=== PATIENT | female | born 1970 | race Caucasian/White ===

== ENCOUNTER 2017-02-12 19:12 | Emergency (ER) | payer BC ==
[~2017-02-12] VITALS: Ht 165.1 cm; Wt 70.2 kg
[~2017-02-12 19:12] MED LIST: ALPR0.5T6 PO; ALPR2TAB PO; BUSP30TA PO; GABA100C14 PO
[2017-02-12 20:48] VITALS: Ht 165.1 cm; Wt 70.2 kg
[2017-02-12] MEDS ORDERED: ACETAMINOPHEN 500 MG TAB PO STA (21:25)
[2017-02-12 22:02] LABS: URINE BLOOD (Dip) POC 1+ (NEGATIVE)
[2017-02-12 22:50] LABS: ADD UMIC YES; UR ASCORBIC ACID NEGATIVE (NEGATIVE); UR BILIRUBIN (Dip) NEGATIVE (NEGATIVE); UR BLOOD (Dip) 1+ mg/dL (NEGATIVE); UR CLARITY CLEAR (CLEAR); UR COLOR YELLOW (YELLOW); UR GLUCOSE (Dip) NEGATIVE (NEGATIVE); UR KETONES (Dip) NEGATIVE (NEGATIVE); UR LEUKOCYTE ESTERASE (Dip) NEGATIVE Leu/ul (NEGATIVE); UR MUCUS MODERATE /HPF (NONE SEEN); UR NITRITE (Dip) NEGATIVE (NEGATIVE); UR RBC 2 /HPF (0-5); UR SPECIFIC GRAVITY (Dip) 1.024 (1.003-1.030); UR SQUAMOUS EPITHELIAL CELL FEW /HPF (FEW); UR TOTAL PROTEIN (Dip) NEGATIVE (NEGATIVE); UR UROBILINOGEN (Dip) NEGATIVE (NEGATIVE)
--- NOTE | 2017-02-12 22:53 | RADRPT ---
PROCEDURE: CT ABDOMEN/PELVIS WITHOUT CONTRAST CLINICAL INDICATION: 46-year-old female with lower quadrant pain. TECHNIQUE: The study was performed utilizing a GE [employer] VCT 64-slice CT scanner. Direct axia l sections were obtained through the abdomen and pelvis without the use of intravenous contrast mate rial. Sagittal and coronal reformations were obtained. One or more of the following dose reduction t echniques were utilized: automated exposure control, adjustment of the mA and/or kV according to pat ient's size or use of iterative reconstruction technique. The images were reviewed on a PACS workst [employer]. CTD/vol = 21.0 mGy; Total Exam DLP = 1107.3 mGy-cm. COMPARISON: None. FINDINGS: The lung bases are unremarkable. There is no evidence for significant pleural effusion. There are m inimal bilateral foramen of Bochdalek hernias containing fat. The liver has a normal size and contou r without focal areas of abnormal density. No intrahepatic nor extrahepatic biliary ductal dilatatio n is seen. The gallbladder demonstrates no wall thickening nor pericholecystic fluid. No biliary sto jared are evident. The pancreas is without areas of abnormal attenuation. The spleen is identified an d has a normal size without abnormal density. The adrenal glands are unremarkable. The kidneys are w ithout abnormal density. No hydroureteronephrosis nor nephroureterolithiasis is evident. The urinary bladder is decompressed. There is no evidence for bowel obstruction. There are multiple diverticula identified within the sigmoid colon with thickening and surrounding inflammatory changes consistent with acute sigmoid diverticulitis. The appendix is visualized and is without abnormal thickening or surrounding inflammatory reaction. The uterus is bulbous and anteflexed. Multiple phleboliths ar e seen within the pelvis. There is no significant free fluid. There is a small left inguinal hernia containing fat. The aortoiliac vessels are without aneurysmal dilatation. The osseous structures ar e intact. IMPRESSION: 1. Acute sigmoid diverticulitis. 2. No CT evidence for appendicitis. 3. Small left inguinal hernia containing fat. .Osman Henderson MD, Date Time Electronically viewed and signed by .Osman Henderson MD, MD on 02/12/2017 22:53 .Vinicius
[2017-02-12 23:19] LABS: BASOPHIL # 0.1 10^3/ul (0.0-0.1); BASOPHILS % 0.7 % (0.0-2.0); EOSINOPHILS # 0.3 10^3/ul (0.0-0.5); EOSINOPHILS % 2.5 % (0.0-7.0); HEMOGLOBIN 13.2 g/dl (12.0-16.0); LYMPHOCYTES # 2.6 10^3/ul (0.8-2.9); LYMPHOCYTES % 23.4 % (15.0-51.0); MEAN CORPUSCULAR HEMOGLOBIN 29.9 pg (29.0-33.0); MEAN CORPUSCULAR HGB CONC 32.2 g/dl (32.0-37.0); MEAN PLATELET VOLUME 9.9 fl (7.4-10.4); MONOCYTE # 0.6 10^3/ul (0.3-0.9); MONOCYTES % 5.2 % (0.0-11.0); NEUTROPHILS % 67.7 % (39.0-77.0); PLATELET COUNT 241 10^3/UL (140-415); RED BLOOD COUNT 4.41 10^6/ul (4.20-5.40); RED CELL DISTRIBUTION WIDTH 13.7 % (11.5-14.5); WHITE BLOOD COUNT 11.1 10^3/ul (4.8-10.8)
[2017-02-13 00:11] LABS: ALBUMIN 3.9 g/dl (3.3-4.9); ALBUMIN/GLOBULIN RATIO 1.08; BILIRUBIN,INDIRECT 0.2 mg/dl (0-1.1); BILIRUBIN,TOTAL 0.2 mg/dl (0.2-1.3); CALCIUM 9.2 mg/dl (8.4-10.2); CREATININE 0.91 mg/dl (0.44-1.00); POTASSIUM 3.9 mmol/L (3.5-5.1); TOTAL PROTEIN 7.5 g/dl (6.1-8.1)
[2017-02-13] MEDS ORDERED: ACET500C5 PO (00:21)
[2017-02-13] MEDS ORDERED: METR500T PO (00:21)
[2017-02-13] MEDS ORDERED: CIPR500T4 PO (00:21)
[2017-02-13] MEDS ORDERED: CIPROFLOXACIN 500 MG TAB PO ONE (00:30)
[2017-02-13] MEDS ORDERED: metroNIDAZOLE 500 MG TAB PO ONE (00:30)
--- NOTE | 2017-02-13 01:04 | ERD ---
ER Documentation Chief Complaint Date/Time DATE: 02/13/17 TIME: 00:50 Chief Complaint lower to right abdominal pain radiating to left since yesterday HPI 46-year-old female complaining of sudden onset abdominal pain since 7 PM last night. Patient initially was located below the [facility], the pain has migrated to the right lower quadrant and left lower quadrant over time. Patient reports pain is constant and sharp. Denies fever or chills. Denies vomiting or diarrhea. Denies dysuria. LMP 02/03/2017. ROS All systems reviewed and are negative except as per history of present illness. Medications Home Meds Active Scripts Acetaminophen* (Tylophen*) 500 Mg Capsule, 1 CAP PO Q6H Y for PAIN AND OR ELEVATED TEMP, #20 CAP Prov:MARI MORALES NP 02/13/17 Metronidazole* (Flagyl*) 500 Mg Tablet, 500 MG PO TID for 7 Days, TAB Prov:MARI MORALES. AZRA 02/13/17 Ciprofloxacin Hcl* (Ciprofloxacin Hcl*) 500 Mg Tablet, 500 MG PO BID for 7 Days , TAB Prov:MARI MORALES [employer] 02/13/17 Reported Medications Alprazolam* (Alprazolam*) 0.5 Mg Tablet, 0.5 MG PO TID 07/23/12 Alprazolam (Alprazolam XR) 2 Mg Tab.sr.24h, 2 MG PO DAILY 07/23/12 Gabapentin* (Gabapentin*) 100 Mg Capsule, 200 MG PO BID 07/23/12 Buspirone Hcl (Buspar) 30 Mg Tablet, 30 MG PO BID 07/23/12 Allergies Allergies: Coded Allergies: butorphanol tartrate (Verified Allergy, Unknown, HALLUCINATION, 02/13/17) meloxicam (Verified Allergy, Unknown, RASH, 02/13/17) PMhx/Soc History of Surgery: Yes (,Hysterectomy,Mammoplasty) Anesthesia Reaction: No Hx Neurological Disorder: No Hx Respiratory Disorders: No Hx Cardiac Disorders: No Hx Psychiatric Problems: Yes (Anxiety) Hx Miscellaneous Medical Probl: Yes (URIs) Hx Alcohol Use: Yes (weekly) Hx Substance Use: No Hx Tobacco Use: Yes (1-2 sticks/day) Smoking Status: Current every day smoker Physical Exam Vitals Vital Signs Date Time Temp Pulse Resp B/P Pulse Ox O2 Delivery O2 Flow Rate FiO2 02/12/17 20:48 98.3 82 20 143/95 98 Physical Exam General: Well-developed, well-nourished, conscious and coherent, in no distress Skin: Warm and dry without rash, good texture and turgor Head: Normocephalic without evidence of trauma Eyes: Sclera and conjunctivae normal; pupils equal, round, and reactive to light; extraocular movements are intact Chest: Normal AP diameter. Good expansion without retractions. Nontender. Lungs are clear to auscultate bilaterally with good tidal volume Heart: Regular rate and rhythm. No murmur, rub, or gallops heard Abdomen: Soft, tenderness over the left lower and right lower quadrants. Rebound tenderness at the right lower quadrant. No masses. Bowel sounds are active. No hepatosplenomegaly Back: Without spinal or CVA tenderness Extremities: Full range of motion. Good strength bilaterally. No clubbing, cyanosis, or edema. Peripheral pulses are intact. Sensation intact Neuro: Alert and oriented 4, GCS 15. Cranial nerves grossly intact. Motor and sensory exams nonfocal. Moves all extremities. Speech clear. Gait normal Result Diagram: 02/12/17224802/12/172248 Results 24 hrs Laboratory Tests Test 02/12/17 22:07 02/12/17 22:08 02/12/17 22:49 Urine Color YELLOW Urine Clarity CLEAR Urine pH 5.0 Urine Specific [place] 1.024 Urine Ketones NEGATIVEmg/dL Urine Nitrite NEGATIVEmg/dL Urine Bilirubin NEGATIVEmg/dL Urine Urobilinogen NEGATIVEmg/dL Urine Leukocyte Esterase NEGATIVELeu/ul Urine Microscopic RBC 2/HPF Urine Microscopic WBC 1/HPF Urine Squamous Epithelial Cells FEW/HPF Urine Mucus MODERATE/HPF Urine Hemoglobin 1+mg/dL Urine Glucose NEGATIVEmg/dL Urine Total Protein NEGATIVEmg/dl Bedside Urine pH (LAB) 6.0 Bedside Urine Protein (LAB) 1+ Bedside Urine Glucose (UA) Negative Bedside Urine Ketones (LAB) Negative Bedside Urine Blood 1+ Bedside Urine Nitrite (LAB) Negative Bedside Urine Leukocyte Esterase (L Negative White Blood Count 11.110^3/ul Red Blood Count 4.4110^6/ul Hemoglobin 13.2g/dl Hematocrit 41.0% Mean Corpuscular Volume 93.0fl Mean Corpuscular Hemoglobin 29.9pg Mean Corpuscular Hemoglobin Concent 32.2g/dl Red Cell Distribution Width 13.7% Platelet Count 61996^3/UL Mean Platelet Volume 9.9fl Neutrophils % 67.7% Lymphocytes % 23.4% Monocytes % 5.2% Eosinophils % 2.5% Basophils % 0.7% Nucleated Red Blood Cells % 0.0/100WBC Neutrophils # (Manual) 7.510^3/ul Lymphocytes # 2.610^3/ul Monocytes # 0.610^3/ul Eosinophils # 0.310^3/ul Basophils # 0.110^3/ul Nucleated Red Blood Cells # 0.010^3/ul Sodium Level 141mmol/L Potassium Level 3.9mmol/L Chloride Level 102mmol/L Carbon Dioxide Level 26mmol/L Anion Gap 17 Blood Urea Nitrogen 15mg/dl Creatinine 0.91mg/dl Glucose Level 94mg/dl Calcium Level 9.2mg/dl Total Bilirubin 0.2mg/dl Direct Bilirubin 0.00mg/dl Indirect Bilirubin 0.2mg/dl Aspartate Amino Transf (AST/SGOT) 30IU/L Alanine Aminotransferase (ALT/SGPT) 31IU/L Alkaline Phosphatase 59IU/L Total Protein 7.5g/dl Albumin 3.9g/dl Globulin 3.60g/dl Albumin/Globulin Ratio 1.08 Lipase 131U/L Current Medications Medications (Trade) Dose Ordered Sig/Matthew Route PRN Reason Start Time Stop Time Status Last Admin Dose Admin Acetaminophen (Tylenol Tab) 1,000 mg ONCE STAT PO 02/12/17 21:25 02/12/17 21:27 DC 02/12/17 22:32 Metronidazole (Flagyl) 500 mg ONCE ONCE PO 02/13/17 00:30 02/13/17 00:31 DC 02/13/17 00:48 Ciprofloxacin (Cipro) 500 mg ONCE ONCE PO 02/13/17 00:30 02/13/17 00:31 DC 02/13/17 00:48 PROCEDURE: CT ABDOMEN/PELVIS WITHOUT CONTRAST CLINICAL INDICATION: 46-year-old female with lower quadrant pain. TECHNIQUE: The study was performed utilizing a [employer] VCT 64-slice CT scanner. Direct axial sections were obtained through the abdomen and pelvis without the use of intravenous contrast material. Sagittal and coronal reformations were obtained. One or more of the following dose reduction techniques were utilized: automated exposure control, adjustment of the mA and/ or kV according to patient's size or use of iterative reconstruction technique. The images were reviewed on a PACS workstation. CTD/vol = 21.0 mGy; Total Exam DLP = 1107.3 mGy-cm. COMPARISON: None. FINDINGS: The lung bases are unremarkable. There is no evidence for significant pleural effusion. There are minimal bilateral foramen of Bochdalek hernias containing fat. The liver has a normal size and contour without focal areas of abnormal density. No intrahepatic nor extrahepatic biliary ductal dilatation is seen. The gallbladder demonstrates no wall thickening nor pericholecystic fluid. No biliary stones are evident. The pancreas is without areas of abnormal attenuation. The spleen is identified and has a normal size without abnormal density. The adrenal glands are unremarkable. The kidneys are without abnormal density. No hydroureteronephrosis nor nephroureterolithiasis is evident. The urinary bladder is decompressed. There is no evidence for bowel obstruction. There are multiple diverticula identified within the sigmoid colon with thickening and surrounding inflammatory changes consistent with acute sigmoid diverticulitis. The appendix is visualized and is without abnormal thickening or surrounding inflammatory reaction. The uterus is bulbous and anteflexed. Multiple phleboliths are seen within the pelvis. There is no significant free fluid. There is a small left inguinal hernia containing fat. The aortoiliac vessels are without aneurysmal dilatation. The osseous structures are intact. IMPRESSION: 1. Acute sigmoid diverticulitis. 2. No CT evidence for appendicitis. 3. Small left inguinal hernia containing fat. .Osman Henderson MD, Date Time Electronically viewed and signed by .Osman Henderson MD, MD on 02/12/2017 22:53 .M/ CC: MARI MORALES. [employer] Procedures/MDM Well-appearing 46-year-old female presented ED with lower abdominal pain 2 days. Mild leukocytosis of 11.1 is noted on CBC, otherwise negative. CMP and lipase are negative. UA has 1+ hemoglobin, otherwise negative. CT of abdomen pelvis without IV contrast showed acute diverticulitis, no appendicitis, and small inguinal hernia containing fat. Her urine test is negative, low suspicion for ectopic , ovarian torsion, or ruptured ovarian cyst. Patient was given Tylenol in the ED for pain. Patient reports no relief of pain. However patient refused morphine or any other pain medications due to fear of the side effects or adverse reactions. First dose of Flagyl and Cipro was given to the patient in the ED. Patient will be discharged home for outpatient management, but advised to return to ED in 8-10 hours for recheck. Patient appears well, stable for discharge and outpatient management. Medical decision making shared with patient and family. Education provided to patient and family. Patient and family expressed understanding of the plan. Medications on discharge: Cipro, Flagyl, Tylenol. Follow-up: Return to ED in 8-10 hours for recheck. The case was reviewed and discussed with Dr. Archer, who agrees with the plan of care including labs, treatment, and advanced imaging as appropriate. Disclaimer: Inadvertent spelling and grammatical errors are likely due to EHR/ dictation software use and do not reflect on the overall quality of patient care. Also, please note that the electronic time recorded on this note does not necessarily reflect the actual time of the patient encounter. Departure Diagnosis: Primary Impression: Diverticulitis Diverticulitis site: large intestine Diverticulitis bleeding: unspecified bleeding status Diverticulitis complication: without perforation or abscess Qualified Code: K57.32 - Diverticulitis of large intestine without perforation or abscess, unspecified bleeding status Condition: Stable Patient Instructions: Diverticulitis Referrals: DONNA LUCIA MD (PCP) Additional Instructions: Return to ER in 8-10 hours for a recheck if symptoms does not improve. MARI MORALES NP Feb 13, 2017 01:00
== END 2017-02-13 01:20 | disposition home or self-care (01) ==
LOC: FTE 19:12
DX: K57.32 Diverticulitis of large intestine without perforation or abscess without bleeding (principal); F17.210 Nicotine dependence, cigarettes, uncomplicated
CPT/HCPCS: 36415; 74176; 80053; 81001; 81003; 83690; 85025